=== PATIENT | female | born 1975 | race Caucasian/White ===

== ENCOUNTER 2017-12-12 09:58 | Emergency (ER) | payer MEDICARE ==
[~2017-12-12] VITALS: Ht 157.5 cm; Wt 59.1 kg
[2017-12-12 10:10] VITALS: TEMP 98.5
[2017-12-12] MEDS ORDERED: PRINIVIL10 MG PO (11:45)
[2017-12-12 12:01] VITALS: BP 117/83; PULSE 73
== END 2017-12-12 12:06 | disposition home or self-care (01) ==
LOC: COL.ER 09:58
DX: S60.221A Contusion of right hand, initial encounter (principal); W23.0XXA Caught, crushed, jammed, or pinched between moving objects, initial encounter; Z85.118 Personal history of other malignant neoplasm of bronchus and lung; F17.210 Nicotine dependence, cigarettes, uncomplicated; Z91.040 Latex allergy status

== ENCOUNTER 2017-12-25 18:39 | Emergency (ER) | payer MEDICARE ==
[~2017-12-25] VITALS: Ht 157.5 cm; Wt 59.1 kg
[~2017-12-25 18:39] MED LIST: PRINIVIL10 MG PO
[2017-12-25 18:45] VITALS: PULSE 104; TEMP 98.5
[2017-12-25 19:47] LABS: BASO % 0.5 % (0.0-2.0); EOS % 0.3 % (0-4.0); GRAN # 3.8 (1.4-6.5); GRAN % 58.4 % (42.2-75.2); HEMATOCRIT 43.7 % (37.0-47.0); HEMOGLOBIN 14.6 g/dl (12.5-16.0); LYMPH % 31.1 % (20.0-51.0); MEAN CELL VOLUME 96 fl (80.0-100.0); MEAN CORPUSCULAR HEMOGLOBIN 32 pg (27.0-31.0); MEAN CORPUSCULAR HGB CONC 33 g/dl (33.0-37.0); MEAN PLATELET VOLUME 11.2 fl (7.4-10.4); MONO # 0.6 (0.1-0.6); MONO % 9.5 % (1.7-9.3); PLATELET COUNT 249 K/mm3 (130-400); RED BLOOD COUNT 4.56 M/mm3 (4.10-5.30); REDCELL DISTRIBUTION WIDTH-CV 13.2 % (11.5-14.5)
[2017-12-25 19:54] LABS: INR 1.1 (0.8-3.0); PROTHROMBIN TIME 12.2 SECONDS (9.7-12.8)
[2017-12-25 19:56] LABS: ALANINE AMINOTRANSFERASE 23 U/L (9-52); ALBUMIN 4.4 gm/dL (3.5-5.0); ALKALINE PHOSPHATASE 78 U/L (50-136); ANION GAP 8 mmol/L (7-16); AST,SGOT 19 U/L (15-37); BILIRUBIN,TOTAL 0.3 mg/dL (0.0-1.0); BLOOD UREA NITROGEN 6 mg/dL (7-17); CALCIUM 9.1 mg/dL (8.4-10.2); CARBON DIOXIDE 27 mmol/L (22-30); CHLORIDE 107 mmol/L (98-107); CREATININE, serum 0.59 mg/dL (0.52-1.25); GLUCOSE 97 mg/dL (74-106); POTASSIUM 3.6 mmol/L (3.4-5.0); SODIUM 142 mmol/L (137-145); TOTAL PROTEIN 6.7 gm/dL (6.4-8.2)
[2017-12-25 19:57] LABS: PARTIAL THROMBOPLASTIN TIME 29.1 SECONDS (26.0-37.0)
[2017-12-25 20:00] LABS: D-DIMER < 200.00 ng/mLDDu (200-230)
[2017-12-25 20:12] LABS: TROPONIN-I < 0.012 ng/mL (0.000-0.034)
[2017-12-25] MEDS ORDERED: VOLTAREN 75 DR75 MG PO (22:19)
[2017-12-25 22:52] VITALS: BP 118/70
== END 2017-12-25 22:52 | disposition home or self-care (01) ==
LOC: COL.ER 18:39
PROVIDERS: Emergency Medicine
DX: R07.81 Pleurodynia (principal); I10 Essential (primary) hypertension; E11.9 Type 2 diabetes mellitus without complications; I50.9 Heart failure, unspecified; J44.9 Chronic obstructive pulmonary disease, unspecified; F17.210 Nicotine dependence, cigarettes, uncomplicated; Z85.118 Personal history of other malignant neoplasm of bronchus and lung; Z85.41 Personal history of malignant neoplasm of cervix uteri; Z90.710 Acquired absence of both cervix and uterus
CPT/HCPCS: J1885; J2765; J3010; J7040

== ENCOUNTER 2018-01-04 15:54 | Emergency (ER) | payer MEDICARE, MEDICAID ==
[~2018-01-04] VITALS: Ht 157.5 cm; Wt 59.1 kg
[~2018-01-04 15:54] MED LIST changes: +VOLTAREN 75 DR75 MG PO
[2018-01-04 16:07] VITALS: BP 140/87; TEMP 99
[2018-01-04] MEDS ORDERED: PRINIVIL10 MG PO (16:10)
[2018-01-04] MEDS ORDERED: AMOXICILLIN 50500 MG PO (17:47)
[2018-01-04 18:09] VITALS: PULSE 75
== END 2018-01-04 18:27 | disposition home or self-care (01) ==
LOC: COL.ER 15:54
DX: G89.18 Other acute postprocedural pain (principal); K13.79 Other lesions of oral mucosa; E11.9 Type 2 diabetes mellitus without complications; I10 Essential (primary) hypertension; J45.909 Unspecified asthma, uncomplicated; G43.909 Migraine, unspecified, not intractable, without status migrainosus; F32.9 Major depressive disorder, single episode, unspecified; F41.9 Anxiety disorder, unspecified; C34.90 Malignant neoplasm of unspecified part of unspecified bronchus or lung; F17.210 Nicotine dependence, cigarettes, uncomplicated; Z98.818 Other dental procedure status